=== PATIENT | female | born 1955 | race Caucasian/White ===

== ENCOUNTER 2019-09-02 10:33 | Day surgery (SDC) | payer MEDICAID ==
[2019-09-01 12:48] LABS: PARTIAL THROMBOPLASTIN TIME 28 SECONDS (22-32)
[~2019-09-02] VITALS: Ht 165.1 cm; Wt 97.3 kg
[2019-09-02] VITALS (10 sets, daily range): BP systolic 149–185; BP diastolic 13–104
[2019-09-02] MEDS ORDERED: normal saline 1,000 ML IV SCH (10:55)
[2019-09-02] MEDS ORDERED: diphenhydrAMINE 25mg capsule PO PRN (10:55)
[2019-09-02] MEDS ORDERED: LORazepam 0.5 MG tablet PO PRN (10:55)
[2019-09-02] MEDS ORDERED: nitroGLYCERIN 0.4mg SUBLingual tab SL PRN ×2 (10:55→13:55)
[2019-09-02] MEDS ORDERED: ALBU17AE26 INH (11:30)
[2019-09-02] MEDS ORDERED: O2 NASALCANN (11:30)
[2019-09-02] MEDS ORDERED: FLUT1BLS10 INH (11:30)
[2019-09-02] MEDS ORDERED: midazolam 2 mg/2 ml injection ONE (12:06)
[2019-09-02] MEDS ORDERED: LIDOcaine 1% (10mg/ml)w/preservative injection 20ml MDV ONE (12:06)
[2019-09-02] MEDS ORDERED: fentaNYL/PF 50MCG/1 ML 2ML syringe ONE (12:06)
[2019-09-02] MEDS ORDERED: iohexol 350 MG/ML 50ML vial IV ONE (12:07)
[2019-09-02] MEDS ORDERED: iohexol 350MG/ML 100ml bottle IV ONE (12:07)
[2019-09-02] MEDS ORDERED: nitroGLYCERIN-Tridil 50MG/D5W 250 ML IV ONE (12:50)
[2019-09-02] MEDS ORDERED: HYDROcodone/acetaminophen 10/325mg tab PO PRN (13:55)
[2019-09-02] MEDS ORDERED: proCHLORperazine 10 MG/2 ml inj IV PRN (13:55)
[2019-09-02] MEDS ORDERED: HYDROcodone/acetaminophen 5mg/325mg tablet PO PRN (13:55)
[2019-09-02] MEDS ORDERED: ondansetron/PF 4mg/2ml inj IV PRN (13:55)
[2019-09-02] MEDS ORDERED: OXAZEpam 15mg capsule PO PRN (13:55)
== END 2019-09-02 18:50 | disposition home or self-care (01) ==
LOC: SSTAY O 10:33
PROVIDERS: ATTEND Internal Medicine Cardiovascular Disease
DX: R94.39 Abnormal result of other cardiovascular function study (principal); I25.10 Atherosclerotic heart disease of native coronary artery without angina pectoris; I10 Essential (primary) hypertension; J44.9 Chronic obstructive pulmonary disease, unspecified; E78.5 Hyperlipidemia, unspecified; B19.20 Unspecified viral hepatitis C without hepatic coma; I45.10 Unspecified right bundle-branch block; G89.4 Chronic pain syndrome; F12.90 Cannabis use, unspecified, uncomplicated; F17.210 Nicotine dependence, cigarettes, uncomplicated; Z72.89 Other problems related to lifestyle; Z98.890 Other specified postprocedural states; Z79.899 Other long term (current) drug therapy
CPT/HCPCS: 36415; 71046; 85610; 85730; 93458; 99152; 99153; C1760; C1769; J1644; J2001; J2250; J3010; J7030; Q0163; Q9967; A4620; A6258; J3490